=== PATIENT | female | born 2005 | race African-American/Black ===

== ENCOUNTER 2023-02-27 15:20 | Emergency (ER) | payer MEDICAID ==
[~2023-02-27] VITALS: Ht 167.6 cm; Wt 68.8 kg
[2023-02-27 18:51] VITALS: BP 130/76; PULSE 72; RESP 18; TEMP 98.3; O2SAT 99
[2023-02-27] MEDS ORDERED: IBUP-1456 PO (20:38)
[2023-02-27] MEDS ORDERED: CYCL-837 PO (20:38)
== END 2023-02-27 22:20 | disposition home or self-care (01) ==
LOC: ER 15:20
DX: S46.911A Strain of unspecified muscle, fascia and tendon at shoulder and upper arm level, right arm, initial encounter (principal); S16.1XXA Strain of muscle, fascia and tendon at neck level, initial encounter; S29.012A Strain of muscle and tendon of back wall of thorax, initial encounter; W18.09XA Striking against other object with subsequent fall, initial encounter; Y93.89 Activity, other specified; Y92.89 Other specified places as the place of occurrence of the external cause; Y99.8 Other external cause status
CPT/HCPCS: 72040; 72070; 73030